=== PATIENT | male | born 1950 | race Caucasian/White ===

== ENCOUNTER 2022-11-16 00:53 | Day surgery (SDC) | payer MEDICARE, BC, SELFPAY ==
[2022-11-01 15:29] VITALS: BMI 32.1
[2022-11-16 06:34] VITALS: BP 152/75; PULSE 62; RESP 18; TEMP 36.2; O2SAT 95
[2022-11-16] MEDS: LACTATED RINGERS 1,000 ML 150 ML IV CONT (06:57)
--- NOTE | 2022-11-16 07:25 | WPDANESEPPF ---
Anes - Initial Pre Proc Eval Procedure: Operation Date: 11/16/22 08:00 Proposed Procedures p Screening Colonoscopy, Rectal Exam Under Anesthesia With Hemorrhoid Banding - Eren Jones DO Date/Time: 11/16/22 07:25 Surgeon: Eren Jones DO Pre Op Diagnosis: Grade 3 Internal Hemorrhoids, Screen for Rectal Ca Patient Data Age: 72 Gender: M Height: 1.8 m Weight: 102 kg Last Vital Signs Temp 36.2 C L 11/16/22 06:34 Pulse 62 11/16/22 06:34 Resp 18 11/16/22 06:34 BP 152/75 H 11/16/22 06:34 Pulse Ox 95 11/16/22 06:34 O2 Del Method Room Air 11/16/22 06:34 Allergies Allergy/AdvReac Type Severity Reaction Status Date / Time No Known Allergies Allergy Verified 11/16/22 06:33 Home Medications Medication Instructions Recorded Confirmed Type acyclovir 800 mg tablet 800 mg PO DAILY 10/26/22 11/01/22 History hydrocortisone 2.5 % topical cream 1 applic topical BID 10/26/22 11/01/22 History losartan 50 mg-hydrochlorothiazide 1 tablet PO DAILY 10/26/22 11/01/22 History 12.5 mg tablet pravastatin 40 mg tablet 40 mg PO DAILY 10/26/22 11/01/22 History tamsulosin 0.4 mg capsule 0.4 mg PO DAILY 10/26/22 11/01/22 History omega 4-bke-yig-fish oil 1,200 mg 1,200 cap PO DAILY 11/01/22 11/01/22 History (144 mg-216 mg) capsule (Fish Oil) tobramycin 0.3 %-lotepred 0.5 % 1 drp EACH EYE DAILY 11/01/22 11/01/22 History eye drops,suspension (Zylet) Patient hx anesthesia problems: none Family hx anesthesia problems: none Results Review: All pre-operative results and documents have been reviewed as part of the pre-operative evaluation. [facility] Past Medical History Medical History (Updated 11/15/22 @ 16:17 by Marquise Barbour DO) Elevated prostate specific antigen [PSA] Hyperlipidemia Hypertension LISS (obstructive sleep apnea) Type 2 diabetes mellitus without complication Surgical History Surgical History H/O arthroscopy of knee Family History Family History Other Diabetes mellitus Heart disease Thyroid cancer Social History Social History Smoking status: Former smoker Tobacco type: cigarettes Alcohol intake: current Drinks per week: 12 Alcohol use details: BEERS Substance use: never Substance use type: does not use Living arrangements: with family Spiritual care concerns: No Anes - Eval Final PreProcedure Day of Procedure 11/16/22 07:25 Patient weight: obese Heart: regular rate and rhythm Lungs: clear to auscultation Airway: Mallampati scale class II Neurological: alert and oriented Last oral intake: >/= 8 hours ASA classification: III Emergent: no Anesthetic plan: proceed Anesthesia type and monitoring: general GIVS and standard monitoring Results Review: All pre-operative results and documents have been reviewed as part of the pre-operative evaluation. Informed Consent: The patient's anesthetic plan and its attendant risks and benefits were discussed with the patient/family/POA. Questions were solicited and answers provided to the satisfaction of the patient/family/POA.
--- NOTE | 2022-11-16 07:35 | WPDHPUPDATE1 ---
History and Physical Update Update Date/Time: 11/16/22 07:35 History and Physical has been reviewed, including an updated exam of the patient. There are NO changes in the patient's condition. Risks, benefits, and alternatives have been discussed and questions answered. Patient agrees to proceed with procedure.
[2022-11-16 09:09] VITALS: BP 111/95; PULSE 49; RESP 18; O2SAT 93
[2022-11-16 09:19] VITALS: BP 106/78; PULSE 55; RESP 12; O2SAT 97
[2022-11-16 09:28] VITALS: BP 116/81; PULSE 55; RESP 15; O2SAT 98
--- NOTE | 2022-11-16 12:44 | W.PM.PROC2 ---
Procedure Note - Detailed Date of Procedure 11/16/22 Pre-op Diagnosis Grade 3 Internal Hemorrhoids, Screen for Rectal Ca Post-op Diagnosis Same Procedure Performed Internal hemorrhoid rubber banding x2 Surgeon Eren Jones, DO Anesthesia MAC Indications this is a 72-year-old man who presents with occasional rectal bleeding. He notices occasional bright red blood dripping into the toilet after bowel movements. He denied any rectal pain. He has a history of colonoscopy 5 years ago and polyps were removed at that time. He is due for another colonoscopy. Discussions were made with the patient about treatment options and decision was made to proceed with colonoscopy followed by internal hemorrhoid rubber banding. Findings After completion of colonoscopy, a Hill-Almeida anoscope was inserted and the anal rectal canal was carefully inspected. There appeared to be enlarged and prolapsing internal hemorrhoids noted in the right posterior location. There was also some mild internal hemorrhoid tissue within the left lateral location. Internal hemorrhoid banding was performed over each of these locations. No specimens were obtained for pathology. Description of Procedure Procedure as well as risks, benefits, and alternatives were discussed with the patient. Written consent was obtained and placed in chart prior to procedure. Patient was brought back to endoscopy suite and was placed in left lateral decubitus position. Time-out was done to confirm patient and procedure. Digital rectal exam was performed. After completing colonoscopy, I then inserted the lighted anoscope and carefully inspected the anal rectal canal. The hemorrhoid grasper was used to grasp the internal hemorrhoid tissue in the right posterior location and the rubber band ligation device was fired over this area. I then inspected the remainder of the rectum and there did appear to be some mild internal hemorrhoid tissue in the left lateral location. Again the hemorrhoid tissue was grasped with a hemorrhoid grasper and the rubber band device was deployed over this hemorrhoid tissue. No other abnormalities were noted. The anoscope was then removed and the patient was awakened from anesthesia and transferred to GI recovery. Estimated Blood Loss 2 Complications No immediate complications Condition Stable Disposition Same day [facility] Billing Surgery - Charge Forward: Surgery Billing
== END 2022-11-16 09:48 | disposition home or self-care (01) ==
PROVIDERS: PCP Internal Medicine; Visit Provider Surgery
PROC: 0DJD8ZZ Inspection of Lower Intestinal Tract, Via Natural or Artificial Opening Endoscopic (ICD-10-PCS; CPT 45378; principal; 2022-11-16 08:00)
DX: Z12.11 Encounter for screening for malignant neoplasm of colon (principal); K62.1 Rectal polyp; K64.2 Third degree hemorrhoids; I10 Essential (primary) hypertension; E78.5 Hyperlipidemia, unspecified; G47.33 Obstructive sleep apnea (adult) (pediatric); E11.9 Type 2 diabetes mellitus without complications; Z87.891 Personal history of nicotine dependence; E66.9 Obesity, unspecified; Z68.31 Body mass index [BMI] 31.0-31.9, adult
CPT/HCPCS: 45385; 46221; 88305; J2704; J7120

== ENCOUNTER 2025-07-18 17:49 | Emergency (ER) | payer MEDICARE, BC, SELFPAY ==
[2025-07-18 17:51] VITALS: BP 157/82; PULSE 68; RESP 18; TEMP 36.6; O2SAT 93
--- OUTSIDE RECORDS SUMMARY | 2025-07-18 17:52 | XMS_ITS ---
Author Organization Unknown ENCOUNTERS Encounter Performer Location Date Diagnosis Diagnosis Status Pre Admit [place] [address] [place] [address] [id number] Pre Admit [facility] [address] [place] [id number] Outpatient [facility] [address] [id number] RAQUEL *Note: Encounters from your own facility or health system may be excluded. Allergies, Adverse Reactions, Alerts Allergen Type Severity Identification Date Medications Name Date Quantity Days Supplied [facility] Number
--- NOTE | 2025-07-18 17:59 | ED.DENTAL ---
HPI - Dental/Oral General Chief complaint: Dental/Oral Stated complaint: rt. side dental pain Time Seen by Provider: 07/18/25 17:53 Source: patient Mode of arrival: ambulatory Limitations: no limitations History of Present Illness HPI Narrative: This is a 74-year-old male with history of hypertension with some dental caries has pain in his lower right molar and premolar area with surrounding gum inflammation no enlarged or tender right submandibular glands no shortness of breath no fever chills no nausea vomiting. MD Complaint: tooth pain Teeth map:  1. Dental pain with surrounding gum inflammation Onset (ago): day(s) Duration: constant Severity: moderate Severity scale (1-10): 8 Relieving factors: nothing Exacerbating factors: chewing Related Data Home Medications ?Medication ?Instructions ?Recorded ?Confirmed ?Last Taken ?Type acyclovir 800 mg tablet 800 mg PO DAILY 10/26/22 11/01/22 11/15/22 History hydrocortisone 2.5 % topical cream 1 applic topical BID 10/26/22 11/01/22 11/15/22 History losartan 50 mg-hydrochlorothiazide 1 tablet PO DAILY 10/26/22 11/01/22 11/15/22 History 12.5 mg tablet pravastatin 40 mg tablet 40 mg PO DAILY 10/26/22 11/01/22 11/15/22 History tamsulosin 0.4 mg capsule 0.4 mg PO DAILY 10/26/22 11/01/22 11/15/22 History omega 9-hmm-exd-fish oil 1,200 mg 1,200 cap PO DAILY 11/01/22 11/01/22 11/15/22 History (144 mg-216 mg) capsule (Fish Oil) tobramycin 0.3 %-lotepred 0.5 % 1 drp EACH EYE DAILY 11/01/22 11/01/22 11/15/22 History eye drops,suspension (Zylet) Allergies Allergy/AdvReac Type Severity Reaction Status Date / Time No Known Allergies Allergy Verified 07/18/25 17:51 Review of Systems Review of Systems: All systems reviewed & are unremarkable except as noted in HPI and below PMFSH Past Medical History Medical History LISS (obstructive sleep apnea) Elevated prostate specific antigen [PSA] Type 2 diabetes mellitus without complication Hyperlipidemia Hypertension Surgical History Surgical History H/O arthroscopy of knee Family History Family History Other Diabetes mellitus Heart disease Thyroid cancer Social History Social History Smoking status: Former smoker Tobacco type: cigarettes Alcohol intake: current Drinks per week: 12 Alcohol use details: BEERS Substance use: never Substance use type: does not use Living arrangements: with family Spiritual care concerns: No Exam Const: General: healthy appearing and no acute distress Nutritional Appearance: well nourished Orientation/consciousness: patient oriented x3 Limitations: no limitations HENMT: Other: Dental pain and his right lower molar premolar with surrounding gum inflammation Neck: Neck: normal visual inspection and no lymphadenopathy Resp: Effort & Inspection: normal respiratory effort Auscultation: clear to auscultation bilaterally Cardio: Rate: regular rate Rhythm: regular rhythm GI: GI Palp: Yes Soft to palpation Auscultation: normal bowel sounds Course Course Emergency Course: Medical decision making narrative: The patient was evaluated by myself in the emergency department. History obtained from the patient was an independent historian and physical exam performed and witnessed by a tack. The patient receives 30mg IM Toradol for pain relief and started on Augmentin p.o. for dental abscess. Repeat assessment: Patient doing well on repeat exam with no acute distress Repeat vitals are stable Patient agrees with discussion after shared medical decision making and agrees with discharge. All questions answered to patient's satisfaction. Advised follow-up with his dentist within the next 3 to 5 days further evaluation. Vital Signs Vital signs: Vital Signs Temperature 36.6 C 07/18/25 17:51 Pulse Rate 68 07/18/25 17:51 Respiratory Rate 18 07/18/25 17:51 Blood Pressure 157/82 H 07/18/25 17:51 Pulse Oximetry 93 07/18/25 17:51 Oxygen Delivery Room Air 07/18/25 17:51 Temperature 36.6 C 07/18/25 17:51 Pulse Rate 68 07/18/25 17:51 Respiratory Rate 18 07/18/25 17:51 Blood Pressure 157/82 H 07/18/25 17:51 Pulse Oximetry 93 07/18/25 17:51 Oxygen Delivery Room Air 07/18/25 17:51 Critical Care Time Critical Care Time Critical Care Time: No Discharge Plan Discharge Clinical Impression: Toothache, Dental abscess Patient Disposition: Home Condition: Stable Instructions: Antibiotic Form, Dental Abscess (ED), Toothache (ED) Additional Instructions: Advised follow-up with his dentist within the next 3 to 5 days for further evaluation and treatment. Patient Language: Guatemalan Prescriptions: New amoxicillin-pot clavulanate [Augmentin] 500-125 mg tablet 1 tablet PO TID Qty: 30 0RF tramadol 50 mg tablet 50 mg PO Q6H PRN (Reason: pain) Qty: 20 0RF No Action acyclovir 800 mg tablet 800 mg PO DAILY pravastatin 40 mg tablet 40 mg PO DAILY losartan-hydrochlorothiazide 50-12.5 mg tablet 1 tablet PO DAILY tamsulosin 0.4 mg capsule 0.4 mg PO DAILY hydrocortisone 2.5 % cream 1 applic topical BID Zylet 0.3-0.5 % drops,suspension 1 drp EACH EYE DAILY omega 1-ajq-xfs-fish oil [Fish Oil] 1,200 (144-216) mg Capsule 1,200 cap PO DAILY Follow-up/Referrals: Ngoc Juarez MD [Primary Care Provider, Internal Medicine] Stand Alone Forms: Work/School Release IP Time of Disposition: 18:06
[2025-07-18] MEDS: KETOROLAC 30 MG/ML VIAL (*BKC) IM (18:06)
== END 2025-07-18 18:24 | disposition home or self-care (01) ==
LOC: CHSED 18:05
PROVIDERS: Emergency Provider Emergency Medicine; PCP Internal Medicine
DX: K04.7 Periapical abscess without sinus (principal); I10 Essential (primary) hypertension; E78.5 Hyperlipidemia, unspecified; E11.9 Type 2 diabetes mellitus without complications; Z87.891 Personal history of nicotine dependence
CPT/HCPCS: 96372; 99283; A9270; J1885